=== PATIENT | male | born 2000 ===

== ENCOUNTER 2023-01-29 19:56 | Emergency (ER) | payer OTHER ==
[~2023-01-29] VITALS: Ht 187 cm; Wt 85.0 kg
[2023-01-29 20:10] VITALS: BP 187/98
--- NOTE | 2023-01-29 20:13 | ED Upper Extremity ---
General Stated Complaint: RT PINKY INJURY Source: patient Exam Limitations: no limitations (NISHI KELSEY) History of Present Illness Date Seen by Provider: Jan 29, 2023 Time Seen by Provider: 20:11 Initial Comments Patient is a 22-year-old male who presents ED with right little finger injury. This occurred 30 minutes ago. Patient was playing rugby. Patient went out to extend after somebody he fell landing on his right finger directly on the ground resulting in a deformity. Patient is not able to flex at the PIP joint. Neurovascular intact. Denies taking anything for pain. Denies history of previous injury. Patient reports pain to the right little finger (NISHI KELSEY) Allergies and Home Medications Allergies Coded Allergies: No Known Drug Allergies (Unverified , 01/29/23) Patient Home Medication List Home Medication List Reviewed: Yes (NISHI KELSEY) Review of Systems Constitutional: No chills, No diaphoresis EENTM: No blurred vision, No double vision Respiratory: No cough, No dyspnea on exertion Cardiovascular: No chest pain Gastrointestinal: No abdominal pain, No diarrhea, No nausea, No vomiting Genitourinary: No decreased output, No discharge Musculoskeletal: No back pain; joint pain, joint swelling, muscle pain Skin: No change in color, No change in hair/nails (NISHI KELSEY) All Other Systems Reviewed Negative Unless Noted: Yes (NISHI KELSEY) Physical Exam Vital Signs Vital Signs - First Documented 01/29/23 20:10 Temp 36.4 Pulse 77 Resp 16 B/P (MAP) 187/98 (127) Pulse Ox 98 O2 Delivery Room Air (LESLY,DEE K DO) Vital Signs Capillary Refill : (NISHI KELSEY) Height, Weight, BMI Height: '" Weight: lbs. oz. kg; BMI Method: General Appearance: WD/WN, no apparent distress HEENT: PERRL/EOMI, normal ENT inspection, TMs normal Neck: non-tender, full range of motion, supple Cardiovascular: regular rate, rhythm, no edema, no gallop, no JVD Respiratory: chest non-tender, lungs clear, normal breath sounds Gastrointestinal: normal bowel sounds, non tender, soft Back: normal inspection, no CVA tenderness Shoulder: normal inspection, non-tender Elbow/Forearm: normal inspection, non-tender, no evidence of injury, Right Wrist: Yes non-tender, Yes abrasions (Right dorsum wrist. No tenderness) Hand: Right (Deformity at the right little finger at the PIP joint. Neurovascular intact. 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 3 mls of 1% normal saline was used. Successful reduction of right Successful reduction of the 5th proximal interphalangeal joint dislocation. Neurovascularly pre and post reduction. Miguel tape. Tolerated procedure well (NISHI KELSEY) Progress/Results/Core Measures Results/Orders Medications Given in ED Current Medications Medications Dose Ordered Sig/Rowena Route Start Time Stop Time Status Last Admin Dose Admin Lidocaine HCl 10 ml ONCE ONCE INJ 01/29/23 20:15 01/29/23 20:16 DC 01/29/23 20:23 10 ML (LESLYBELINDAA Aarti DO) Vital Signs/I&O 01/29/23 20:10 Temp 36.4 Pulse 77 Resp 16 B/P (MAP) 187/98 (127) Pulse Ox 98 O2 Delivery Room Air (DEE GRACE DO) Departure Communication (PCP) Patient with injury to right little finger. Fell while playing rugby. Landed on extended right little finger. On arrival deformity noted at the PIP joint. Neurovascular intact. X-ray was obtained which noted Dislocation of the proximal interphalangeal joint of the right 5th finger. Digital block was performed with lidocaine 1%. Successful reduction. Neurovascularly pre and post reduction. Finger was miguel taped. X-ray postreduction shows Successful reduction of the 5th proximal interphalangeal joint dislocation. There is no fracture. Discussed these results with patient. Recommend keeping the finger miguel tape for the next 2 weeks. Orthopedic follow-up in a few weeks. Alte rnate Tylenol and ibuprofen at home. Ice to help with swelling. If increasing pain, swelling redness to return back to ED. Patient agrees with plan of action. (NISHI KELSEY) Impression Primary Impression: Finger dislocation Disposition: 01 HOME, SELF-CARE Condition: Stable Departure-Patient Inst. Decision time for Depature: 20:57 (NISHI KELSEY) Referrals: NO,LOCAL PHYSICIAN (PCP) Primary Care Physician KITTY RAVI MD Patient Instructions: Finger Dislocation (DC) Add. Discharge Instructions: Recommend orthopedic follow-up in few weeks. Continue with miguel tape. Tylenol ibuprofen for pain. ATTENDING PHYSICIAN NOTE: I WAS PHYSICALLY PRESENT ER PHYSICIAN, BUT I WAS NOT INVOLVED IN ANY DECISION MAKING OR ANY CARE OF THIS PATIENT AND I AM NOT COLLABORATING PHYSICIAN. (DEE GRACE DO) NISHI KELSEY Jan 29, 2023 20:13 DEE GRACE DO Jan 29, 2023 22:23
[2023-01-29] MEDS ORDERED: LIDOCAINE 1% INJ 10 ML VIAL INJ ONE (20:15)
--- NOTE | 2023-01-29 21:00 | Diagnostic Imaging Report ---
INDICATION: 5th finger pain. FINDINGS: There is dislocation of the proximal interphalangeal joint of the right 5th finger. There is no identified fracture. Remainder of the right hand is unremarkable. IMPRESSION: Dislocation of the proximal interphalangeal joint of the right 5th finger. The mid phalanx is dorsally dislocated and demonstrates mild overriding of the interphalangeal joint. Dictated by: Dictated on workstation # [id number]
--- NOTE | 2023-01-29 21:06 | Diagnostic Imaging Report ---
INDICATION: Post reduction. Follow-up. COMPARISON: Radiographs from earlier the same day. FINDINGS: There has been successful reduction of the proximal interphalangeal joint of the right 5th finger. There is no identified fracture. Remainder of the hand remains normal. There is some soft tissue swelling overlying the 5th PIP. IMPRESSION: Successful reduction of the 5th proximal interphalangeal joint dislocation. There is no fracture evident. Dictated by: Dictated on workstation # [id number]
== END 2023-01-29 20:45 | disposition home or self-care (01) ==
LOC: ER 20:02
DX: S63.286A Dislocation of proximal interphalangeal joint of right little finger, initial encounter (principal); S60.811A Abrasion of right wrist, initial encounter; W50.0XXA Accidental hit or strike by another person, initial encounter; Y92.328 Other athletic field as the place of occurrence of the external cause; Y93.63 Activity, rugby; Y99.8 Other external cause status
CPT/HCPCS: 73140